=== PATIENT | male | born 1930 | race Caucasian/White ===

== ENCOUNTER 2018-10-29 12:27 | Observation (INO) ==
[2018-10-29] MEDS ORDERED: TYLENOL PO ONE (13:00)
[2018-10-29] MEDS ORDERED: MARCAINE 0.25% INJ ONE (13:03)
--- NOTE | 2018-10-29 13:09 | PROVIDER DOCUMENTATION ---
HPI-General Adult - General Chief Complaint: Fall Stated Complaint: FALL/RT HAND/RT KNEE PAIN Time Seen by Provider: 10/29/18 12:34 Source: patient Allergies/Adverse Reactions: Patient Allergies Allergy/AdvReac Type Severity Reaction Status Date / Time Penicillins Allergy ANAPHYLAXIS Verified 10/29/18 14:10 Home Medications: Home Medication List Medication Instructions Recorded Confirmed Last Taken Type Carvedilol 25 mg PO DAILY 05/23/12 04/13/15 04/13/15 06:00 History Digoxin 125 mcg PO DAILY 05/23/12 04/13/15 04/13/15 06:00 History Furosemide 40 mg PO DAILY 05/23/12 04/13/15 04/13/15 06:00 History Metformin [Glucophage] 500 mg PO DAILY 05/23/12 04/13/15 04/13/15 06:00 History - History of Present Illness -Gen Adult Nature of Presenting Problems: Patient is an 88 yowm who presents following a fall. Fall occurred at 1000 this morning. States, "I've been having dizzy spells and I'm not supposed to be standing up too fast, and I stood up out of my chair on the porch and I turned and went down." Reports striking the right side of his head on concrete. No LOC. No vomiting since fall. Denies headache. Also c/o right knee pain and sustained laceration to right 5th finger. Denies any other pain/injuries. He is in no distress and non-toxic in appearance. Able to partially bear weight on affected knee. States he has seen a neurologist and an ENT outpatient due to dizziness, states, "I haven't heard anything back about the tests they did." Review of Systems - Adult - REVIEW OF SYSTEMS - ADULT Constitutional: reports: no symptoms reported Eyes: reports: no symptoms reported Ears, Nose, Mouth & Throat: reports: no symptoms reported Cardiovascular: denies: chest pain, edema, orthopnea, palpitations, PND, syncope Respiratory: reports: no symptoms reported. denies: shortness of breath, wheezing Gastrointestinal: reports: no symptoms reported Genitourinary: reports: no symptoms reported Musculoskeletal: reports: see HPI, other (right knee pain/fall). denies: back pain, muscle weakness, neck pain Integumentary: reports: see HPI, other (laceration) Neurological: reports: see HPI, dizziness/vertigo, loss of balance, other (head injury). denies: headache/migraines, numbness, paresthesia, seizure, slurred speech, syncope, tremors Psychiatric: reports: no symptoms reported Endocrine: reports: no symptoms reported Hematologic/Lymphatic: reports: no symptoms reported Allergic/Immunologic: reports: no symptoms reported All Other Systems: Reviewed and Negative Past History - Adult - PAST MEDICAL HISTORY-ADULT Review of Records: reports: Old Records Reviewed, Nursing Assessment Review, Medications Reviewed, Social history reviewed & non-contributory. Major Childhood Illnesses: reports: denies history Cardiovascular: reports: HTN, hyperlipidemia Respiratory: reports: COPD Gastrointestinal: reports: denies history Obstetrical/Gynecological: reports: denies history Genitourinary: reports: denies history Musculoskeletal: reports: denies history Neurological: reports: denies history Endocrine/Immune: reports: Diabetes Other Conditions: reports: MRSA - PRIOR SURGERIES/PROCEDURES Surgical/Procedure History: reports: other (aortic valve replacement) - IMMUNIZATION STATUS Childhood Immunizations: See Nurse Assessment Flu Vaccine: See Nurse Assessment - FAMILY HISTORY Family History: reviewed, not pertinent - SOCIAL HISTORY Smoking: quit greater than 1 year Physical Exam-General - PHYSICAL EXAM-ADULT Initial Vital Signs Reviewed: Yes - CONSTITUTIONAL General Appearance: alert, no apparent distress. negative: lethargic, slow to respond - EYES Eyes: PERRL/EOMI, pink conjunctivae - HEAD, EARS, NOSE, MOUTH & THROAT HENMT: normocephalic/atraumatic, moist mucous membranes, TMs normal - NECK Neck: non-tender, full range of motion, supple, normal inspection. negative: C- spine tenderness, trachial deviation, tender lateral, tender midline - RESPIRATORY Respiratory: chest non-tender, lungs clear, normal breath sounds, no pleuratic chest pain, no respiratory distress, no accessory muscle use, other (No rib tenderness or ecchymoses noted to torso.). negative: respiratory distress, retractions, splinting - CARDIOVASCULAR Cardiovascular: normal peripheral pulses, regular rate, rhythm, no edema, no gallop, no JVD, no murmur - GASTROINTESTINAL (ABDOMEN) Abdominal Exam: normal bowel sounds, non tender, soft, no organomegaly, no pulsatile mass. negative: distended, guarding, rigid, rebound, tenderness, hernia, mass - MUSCULOSKELETAL Back Exam: normal inspection, no vertebral tenderness Extremity: normal range of motion, no calf tenderness, normal capillary refill, pelvis stable, tenderness (Right anterior knee, mild echhymoses also noted, ROM limited due to pain.). negative: deformity, erythema, pulse deficit, pedal edema, slow capillary refill Peripheral Pulses: dorsalis-pedis (R): 2+, dorsalis-pedis (L): 2+ - SKIN Integumentary: normal color, warm/dry, laceration(s) (3 cm laceration noted to palmar side of right 5th finger, tendon visible, no tendon rupture or injury apparent. Pt able to flex and extend affected finger. Radial pulse 3+, cap refill < 3 seconds.). negative: cyanosis, diaphoresis, jaundice, mottled, pallor - NEUROLOGIC Neurologic: grossly normal, no motor/sensory deficits - PSYCHIATRIC Psych/Mental Status: normal mood/affect, normal thought content, normal thought process, oriented x 3 Progress - PLAN OF CARE/RESULTS Progress/Plan/Lab Results: Vital Signs - 8 hr 10/29/18 12:29 Temperature 98.1 F Pulse Rate 60 Respiratory Rate 17 Blood Pressure 178/64 O2 Sat by Pulse Oximetry 96 Orders Category Date Time Status Cardiac Monitoring DIRECTED Care 10/29/18 13:00 Active ED: Orthostatic Vital Signs (E DIRECTED Care 10/29/18 13:00 Active Nursing- Obtain EKG ONCE Care 10/29/18 13:00 Active Saline Loc NOW Care 10/29/18 13:02 Active Suture Tray Set-Up DIRECTED Care 10/29/18 13:[address] HEAD/C-SPINE W/O CONTRAST [CT] Stat Exams 10/29/18 13:00 Ordered HAND COMPLETE RIGHT [RAD] Stat Exams 10/29/18 13:00 Ordered KNEE 3 VIEWS RIGHT [RAD] Stat Exams 10/29/18 13:00 Ordered CBC WITH DIFF [HEME] Stat Lab 10/29/18 12:59 Ordered COMPREHENSIVE METABOLIC PANEL [CHEM] Stat Lab 10/29/18 12:59 Uncollected PROTIME WITH INR [COAG] Stat Lab 10/29/18 13:02 Ordered PTT [COAG] Stat Lab 10/29/18 13:02 Ordered TROPONIN T Stat Lab 10/29/18 12:59 Ordered UA NIMS W/REFLEX CULT [URINALYSIS] Stat Lab 10/29/18 13:00 Uncollected Acetaminophen [Tylenol] Med 10/29/18 13:00 Discontinued 650 mg PO NOW ONE Bupivacaine 0.25% [Marcaine 0.25%] Med 10/29/18 13:03 Discontinued 10 ml INJ NOW ONE EKG [EKG] Stat Ther 10/29/18 13:00 Ordered 1605- Spoke with [facility] [employer] Summer regarding admission, [employer] states she will review chart prior to making decision to admit since pt is being worked up by his pcp outpatient for dizziness. 1611- Verified with pt that pcn reaction was not anaphylaxis. Pt states, "I don't really remember what happened but I know my throat didn't close up and my tongue didn't swell." Also denies hx of breathing difficulty with pcn. He is in agreement with admission plan. Result Diagrams: 10/29/18 14:30 10/29/18 14:30 - EKG 1 Time of EKG reading by physician:: 13:53 EKG Read and Signed by:: Balwinder Kelley EKG Interpretation (*Must complete 3 of following elements*): Abnormal Rate: 60 Rhythm: NSR with ST&T wave abnormality QRS: normal ST Wave: normal - CONSULTS/PCP/HOSPITALIST Notification #1 *Consult/PCP/Hospitalist*: Summer, [facility] [employer] Time Discussed: 16:55 Reason/Comments: admission- UTI, dizziness Consult Disposition: Admit ([employer] states Dr. Johnson accepted admission and has seen pt.) Procedures - LACERATION/WOUND REPAIR/FB Right Finger Wound Location: Other: right 5th finger, palmar side Wound Length: 3 cm Wound's Depth, Shape: linear Wound Explored/Foreign Body: clean Irrigated with Saline?: Yes Prepped with: Hibiclens (and saline), Sterile Drapes Applied Anesthetic: 0.5%, Bupivicaine/Marcaine Volume of Anesthetic (ml's): 6 Wound Debrided: extensive (irrigated with 100 ml saline/hibiclens mixture and washed/cleansed extensively) Wound Repaired with: Sutures Suture Size/Type: 4.0, Non-Absorbable, Nylon Number of Sutures: 6 Layer Closure?: No Splint Applied?: Yes Sling Applied?: No Post Procedure Neurovascular Exam: Intact Departure - Departure Date of Disposition Decision: 10/29/18 Time of Disposition Decision: 16:55 DIAGNOSIS: Dizziness, Laceration UTI (urinary tract infection) Qualifiers: Urinary tract infection type: site unspecified Hematuria presence: without hematuria Qualified Code(s): N39.0 - Urinary tract infection, site not specified Fall Qualifiers: Encounter type: initial encounter Qualified Code(s): W19.XXXA - Unspecified fall, initial encounter Head injury Qualifiers: Encounter type: initial encounter Qualified Code(s): S09.90XA - Unspecified injury of head, initial encounter Disposition: ADMITTED INPATIENT 09 Certified Medical Emergency: Emergent Condition: Stable - Critical Care Note This patient required my direct & personal management of CC.: No Attestation - Physician/ KOTA Attestation Patient care was provided by Advanced Practice Provider:: Yes Advanced Practice Provider:: Jacky Canela Advanced Practice Provider documentation review:: The Mid-level provider documentation, treatment plan and medical decision making was reviewed by the physician who agrees with all treatment and medical decision making by the MLP. The physician spent face to face time with patient:: No Advanced Practice Provider documentation review:: Supervising physician onsite and consulted in the evaluation and care of this patient. The physician did not have a face to face encounter with the patient.
--- NOTE | 2018-10-29 13:32 | Diag Imaging Result Doc PS360 ---
EXAM: CT HEAD/C-SPINE W/O CONTRAST INDICATION: fall, head injury TECHNIQUE: This exam was performed using automated exposure control, adjustment of mA or kV according to patient size, and/or use of iterative reconstruction technique. COMPARISON: CT head dated 10/14/[address] head and C-spine dated 04/02/2015 FINDINGS: Head: There is somewhat asymmetric brain atrophy that has exhibited long-term stability. There is suggestion of mild microangiopathy that is stable. There is no definite acute infarct given the limited sensitivity of CT versus MRI. There is a small calcified extra-axial lesion anteriorly on the left adjacent to the falx that is stable and may represent a small calcified meningioma. There is no discrete intracranial mass, mass effect, or intracranial hemorrhage, otherwise. The surrounding soft tissues are essentially unremarkable. The calvaria is intact. C-spine: There is multilevel facet arthropathy and degenerative disc disease that is essentially stable as compared to the previous study. This is most pronounced at C5-6 where there is more loss of disc space height. Otherwise, there is no discrete fracture, subluxation, or intrinsic osseous lesion. The surrounding soft tissues are essentially unremarkable. IMPRESSION: 1.Stable chronic changes but no evidence of acute intracranial pathology. 2.Stable multilevel degenerative arthropathy but no evidence of fracture or other definite acute C-spine injury. Electronically signed by Mario Bro 10/29/2018 1:29 PM
--- NOTE | 2018-10-29 13:35 | Diag Imaging Result Doc PS360 ---
EXAM: KNEE 3 VIEWS RIGHT INDICATION: fall, right knee pain TECHNIQUE: 3 views COMPARISON: None. FINDINGS: There is tricompartmental degenerative arthropathy with marginal osteophyte formation at all three compartments. There is significant degenerative joint space height loss at the medial compartment. There is no discrete fracture, dislocation, or significant intrinsic osseous lesion, otherwise. The surrounding soft tissues are essentially unremarkable. IMPRESSION: Tricompartmental degenerative arthropathy but no evidence of acute osseous abnormality. Electronically signed by Mario Bro 10/29/2018 1:32 PM
--- NOTE | 2018-10-29 13:37 | Diag Imaging Result Doc PS360 ---
EXAM: HAND COMPLETE RIGHT INDICATION: fall, right hand pain TECHNIQUE: 3 views COMPARISON: None. FINDINGS: There is severe radiocarpal joint degenerative arthropathy as well as significant intercarpal degenerative arthropathy. 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 There are milder IP joint degenerative changes. There is no discrete fracture, dislocation, or significant intrinsic osseous lesion, otherwise. The surrounding soft tissues are essentially unremarkable. IMPRESSION: Degenerative changes at the wrist as described but no definite acute osseous abnormality. Electronically signed by Mario Bro 10/29/2018 1:35 PM
[2018-10-29] MEDS ORDERED: MARCAINE 0.5% PF ONE (13:39)
[2018-10-29 14:43] LABS: URINE SOURCE CLEAN CATCH
[2018-10-29 14:44] LABS: BASO# 0.04 X1000 (0.0-0.2); BASO% 0.4 % (0.0-0.8); EOS# 0.29 X1000 (0.0-0.7); EOS% 2.7 % (0.0-10.0); HEMOGLOBIN 13.4 g/dL (14.0-18.0); IMM GRAN# 0.02 X1000 (0.0-0.04); IMM GRAN% 0.2 % (0.0-0.5); LYMPH# 1.65 X1000 (1.2-3.4); LYMPH% 15.2 % (20.5-51.1); MCH 31.8 PG (27-31); MCHC 34.4 g/dL (33-37); MCV 92.6 FL (81-99); MONO# 1.03 X1000 (0.11-0.59); MONO% 9.5 % (1.7-9.3); MPV 9.8 FL (7.4-10.4); NEUT# 7.81 X1000 (1.4-6.5); PLT 164 X1000 (130-400); RBC 4.21 XMIL (4.7-6.1); RDW 12.4 % (11.5-14.5); WBC 10.84 X1000 (4.8-10.8)
[2018-10-29 14:49] LABS: BILIRUBIN URINE NEGATIVE (NEGATIVE); BLOOD URINE TRACE (NEGATIVE); COLOR YELLOW; GLUCOSE URINE NEGATIVE (NEGATIVE); KETONE URINE NEGATIVE (NEGATIVE); LEUKOCYTES URINE LARGE (NEGATIVE); NITRITE URINE POSITIVE (NEGATIVE); PROTEIN URINE NEGATIVE (NEGATIVE); SP GRAVITY URINE 1.008; TURBIDITY URINE HAZY (CLEAR); UROBILINOGEN URINE NORMAL (NORMAL)
[2018-10-29 14:51] LABS: UR EPITHELIAL CELLS <10 /HPF (<10); URINE BACTERIA 3+ /HPF; URINE RBC <10 /HPF (<10); URINE WBC TNTC /HPF (<10)
[2018-10-29 14:52] LABS: INR 0.89; PROTIME 12.8 Seconds (11.0-16.0)
[2018-10-29 15:12] LABS: ALB/GLOB RATIO 1.5; ALBUMIN 4.3 g/dL (3.5-5.0); CALCIUM 9.3 mg/dL (8.8-10.2); CREATININE 1.6 mg/dL (0.7-1.2); POTASSIUM 5.5 mmol/L (3.5-5.1); TOTAL BILIRUBIN 0.45 mg/dL (0.20-1.00); TOTAL PROTEIN 7.2 g/dL (6.3-8.3)
[2018-10-29] MEDS ORDERED: NS 500 ML IV ONE (15:52)
[2018-10-29] MEDS ORDERED: ROCEPHIN 1 GM in NS 50 ML IV ONE ×2 (16:11→16:15)
[2018-10-29] MEDS ORDERED: LEVAQUIN 750 MG/D5W 750 MG/150 ML IVPB IV ONE (17:40)
[2018-10-29] MEDS ORDERED: KAYEXALATE PO ONE (18:38)
--- NOTE | 2018-10-29 19:24 | HISTORY AND PHYSICAL ---
CHIEF COMPLAINT: Fall; finger laceration. HISTORY OF PRESENT ILLNESS: The patient is a 88-year-old male with a history of frequent falls, pulmonary hypertension, CKD 3, hypertension, COPD. He presents after rising too quickly from a seated position, becoming briefly dizzy and falling, cutting open his right index finger. States that he has had frequent issues with orthostasis for quite some time. Has had extensive workup by Cardiology, Neurology, ENT. States that he is usually more careful but getting up, but on this occasion, lucia too quickly. Denies andre syncope. Does endorse some dysuria and urinary hesitancy over the last few days, but no fevers, chills, dyspnea, increased cough, chest pain. On evaluation in the ED, he was found to have a shallow laceration of the right index finger, mild acute kidney injury, and likely UTI. He is admitted for further evaluation and treatment. REVIEW OF SYSTEMS: Twelve-point review of systems negative except as per HPI. PAST MEDICAL HISTORY: Hypertension, diet-controlled diabetes, CKD 3, pulmonary hypertension, COPD. PAST SURGICAL HISTORY: Bovine aortic valve, cholecystectomy, pacemaker placement, chest debridement and skin graft after infection. SOCIAL HISTORY: Former smoker, quit approximately 35 years ago. Denies recent alcohol or illicit drug use. FAMILY HISTORY: Father ; he drowned. Mother with heart failure-related complications. LABORATORIES: WBC 10.8, hemoglobin 13.4, hematocrit 39.0, platelets 164,000. Sodium 130, potassium 5.5, BUN 37, creatinine 1.6, glucose 98. LFTs within normal limits. Albumin within normal limits. Urinalysis: Positive for nitrites, leukocyte large, too numerous to count white cells, no red blood cells, no epithelial cells, 3+ bacteria. IMAGING: Knee x-ray: Arthritis but no acute abnormality. Head and C-spine x-ray: Chronic changes and degenerative arthropathy, but no fracture or acute injury. Right hand x-ray: No acute abnormality or osteoarthritis. VITAL SIGNS: Temperature 98.1 degrees, pulse 60, respirations 17, blood pressure 178/64 O2 saturation 96% on room air. PHYSICAL EXAMINATION: GENERAL: No acute distress. VITAL SIGNS: As above. HEENT: Normocephalic, atraumatic. Dry mucous membranes. NECK: No cervical adenopathy. CARDIOVASCULAR: Regular rate and rhythm currently. Right upper sternal border murmur noted. Pacemaker noted in left upper chest. Extensive well-healed surgical scars on chest in midline. PULMONARY: Clear to auscultation bilaterally. ABDOMEN: Soft, nontender, nondistended. Bowel sounds positive. EXTREMITIES: Peripheral pulses intact. Trace lower extremity edema bilaterally. Right index finger laceration. NEUROLOGIC: Cranial nerves grossly intact. No focal deficits identified. PSYCHIATRIC: Normal mood and affect. Awake, alert, oriented x3 currently. SKIN: Laceration as above. Otherwise no new lesions or rashes noted. ASSESSMENT AND PLAN: 1. Acute kidney injury on chronic kidney disease 3, dehydration. The patient is on heavy diuretics at home, Lasix 80 three times a week and spironolactone 25 three times a week. Denies decreased p.o. intake, nausea, vomiting, or diarrhea, so likely diuretic related. Will hold diuretics, hydrate gently, and monitor. 2. Hyperkalemia, likely related to acute kidney injury. Will give a dose of Kayexalate, fluids as above, and monitor. 3. Urinary tract infection. The patient complains of dysuria and has had minimal leukocytosis but no fever, chills, tachycardia, or other systemic symptoms. Does not meet sepsis criteria. Will treat. Will place on Levaquin, check urine culture, and monitor. 4. Pulmonary hypertension, possible chronic diastolic congestive heart failure. The patient's family state that they believe he has a history of heart failure. On review of the medical record, all available echocardiograms show normal EF with moderate pulmonary hypertension and possible diastolic failure with impaired left ventricular relaxation. Gentle fluids as above, and monitor for signs of volume overload. 5. Hypertension. We will continue home Coreg and ARB once home medications are placed in the computer. Holding diuretics for now. Blood pressure is still somewhat elevated. Reluctant to start Norvasc because the patient has complained of intermittent leg swelling as a major issue. If blood pressure remains significantly elevated, may consider hydralazine or clonidine patch although these may have their own issues. 6. Hyperlipidemia. Continue home statin once medications are in the computer. 7. Diet-controlled diabetes. Last couple of A1c's have been fine off medication. Do not anticipate any insulin or glucose checks on this hospitalization. 8. Disposition: Will hydrate overnight and treat UTI. If the patient's kidney function improves and there are no signs of worsening infection, he may be able to be discharged tomorrow. If kidneys are slow to improve or other signs of infection develop, he may require longer hospitalization.
[2018-10-29] MEDS: LIPITOR PO SCH (22:17)
[2018-10-29] MEDS: NS 1,000 ML IV SCH (22:17)
[2018-10-29] MEDS: MELATONIN PO SCH (22:17)
[2018-10-30] MEDS: ROCEPHIN 1 GM in NS 50 ML IV SCH ×2 (00:42→23:04)
[2018-10-30] MEDS: TYLENOL PO PRN ×2 (00:43→17:57)
[2018-10-30 06:42] LABS: BASO# 0.01 X1000 (0.0-0.2); BASO% 0.1 % (0.0-0.8); EOS# 0.17 X1000 (0.0-0.7); EOS% 1.7 % (0.0-10.0); HEMATOCRIT 37.5 % (42.0-52.0); HEMOGLOBIN 12.7 g/dL (14.0-18.0); IMM GRAN# 0.02 X1000 (0.0-0.04); IMM GRAN% 0.2 % (0.0-0.5); LYMPH# 1.25 X1000 (1.2-3.4); LYMPH% 12.8 % (20.5-51.1); MCH 31.5 PG (27-31); MCHC 33.9 g/dL (33-37); MCV 93.1 FL (81-99); MONO# 0.95 X1000 (0.11-0.59); MONO% 9.7 % (1.7-9.3); MPV 10.6 FL (7.4-10.4); NEUT% 75.5 % (42.2-75.2); PLT 139 X1000 (130-400); RBC 4.03 XMIL (4.7-6.1); RDW 12.3 % (11.5-14.5)
[2018-10-30 07:08] LABS: CALCIUM 8.4 mg/dL (8.8-10.2); CREATININE 1.3 mg/dL (0.7-1.2); POTASSIUM 4.8 mmol/L (3.5-5.1)
[2018-10-30] MEDS ORDERED: COREG PO SCH (09:00)
[2018-10-30] MEDS: NS 1,000 ML IV SCH ×2 (10:02→15:29)
--- NOTE | 2018-10-30 11:02 | PROGRESS NOTE ---
DATE: 10/30/2018 SUBJECTIVE: Patient has had problems with ataxia and frequent falls recently. He had a fall yesterday and suffered a laceration to his right 5th digit and required 6 stitches in the ER for that. He also banged his right knee and jerked his neck. X-rays on his knee and wrist and neck and head were all negative. The latter actually was a CT scan of the head and neck, did show prominent arthritic changes in all these areas, but no acute fractures or bleeds. The patient is doing okay. He has had these dizzy spells and has been evaluated by Cardiology, Neurology and ENT. He has required longstanding high dose diuretics due to diastolic congestive heart failure and he is off the diuretics currently. Did receive 1 dose of Kayexalate due to some hyperkalemia. Notably, he was on Aldactone and telmisartan, those are being held. OBJECTIVE: Vital Signs: Afebrile, pulse 64, respirations 18, blood pressure 188/68, O2 saturation on room air 98%. Cardiovascular: Regular rate and rhythm with rare ectopy. Lungs: Clear. Abdomen: Protuberant, soft, nontender. Extremities: Right wrist with arthritic change but no acute tenderness, FROM at the neck. Right knee has abrasion right inferior patellar area, some arthritic change, but no major abnormality or effusion on testing except for arthritic change consistent with his x-rays. Neurologic: Cranial nerves 2-12 are intact. He is alert and oriented x3. Moves all extremities well. LABORATORY DATA: Sodium 131, potassium 4.8, down from 5.5 yesterday before the Kayexalate, chloride 97, BUN 30, creatinine 1.3, down from 1.6 yesterday with hydration. Calcium 8.4. White count 9.8, hemoglobin 12.7, platelets 139,000. Urine culture is in progress. Pyuria noted on UA. ASSESSMENT: 1. Prerenal azotemia on top of chronic kidney disease, stage 3. 2. Hyperkalemia resolved with Kayexalate and holding of his Aldactone and telmisartan. 3. Urinary tract infection. 4. Pulmonary hypertension with chronic diastolic congestive heart failure compensated. 5. Hypertension. 6. Hyperlipidemia. 7. Diet-controlled type 2 diabetes mellitus. 8. Osteoarthritis. 9. Ataxia. PLAN: We will continue the IV fluids at low-dose. Hold his diuretics of Lasix and Aldactone. Hold the telmisartan due to the hyperkalemia risk and we will start hydralazine at low dose. Continue Coreg and will adjust the dose on that during the hospitalization. His ataxia is medication related. We are going to take this opportunity to adjust vigorously on his medications to see if we can improve that situation and his history of falls. Will follow the electrolytes and urine culture closely. Possible discharge tomorrow if he does well. cc: Chema Sidhu MD
[2018-10-30] MEDS: APRESOLINE PO SCH ×2 (13:48→20:42)
[2018-10-30] MEDS: ASPIRIN PO SCH (13:48)
[2018-10-30] MEDS: LIPITOR PO SCH (20:42)
[2018-10-30] MEDS: MELATONIN PO SCH (20:42)
[2018-10-31] MEDS: APRESOLINE PO SCH (05:08)
[2018-10-31] MEDS: NS 1,000 ML IV SCH ×2 (05:08→06:29)
[2018-10-31 06:32] LABS: BASO# 0.02 X1000 (0.0-0.2); BASO% 0.2 % (0.0-0.8); EOS# 0.22 X1000 (0.0-0.7); EOS% 2.1 % (0.0-10.0); HEMATOCRIT 40.6 % (42.0-52.0); HEMOGLOBIN 13.9 g/dL (14.0-18.0); IMM GRAN# 0.02 X1000 (0.0-0.04); IMM GRAN% 0.2 % (0.0-0.5); LYMPH# 1.51 X1000 (1.2-3.4); LYMPH% 14.4 % (20.5-51.1); MCH 31.2 PG (27-31); MCHC 34.2 g/dL (33-37); MCV 91.2 FL (81-99); MONO# 0.98 X1000 (0.11-0.59); MONO% 9.4 % (1.7-9.3); NEUT# 7.71 X1000 (1.4-6.5); NEUT% 73.7 % (42.2-75.2); PLT 164 X1000 (130-400); RBC 4.45 XMIL (4.7-6.1); RDW 12.6 % (11.5-14.5); WBC 10.46 X1000 (4.8-10.8)
[2018-10-31 07:34] LABS: AGAP 10; BUN 20 mg/dL (8-22); CALCIUM 8.8 mg/dL (8.8-10.2); CHLORIDE 101 mmol/L (98-107); COSMO 271; CREATININE 1.1 mg/dL (0.7-1.2); ESTIMATED GFR > 60; GLUCOSE 94 mg/dL (70-104); POTASSIUM 4.3 mmol/L (3.5-5.1); SODIUM 134 mmol/L (136-145); TCO2 23 mmol/L (25-35)
[2018-10-31] MEDS: ASPIRIN PO SCH (08:33)
--- NOTE | 2018-10-31 08:34 | EKG Report ---
Test Performed on : 10/29/2018 1:38:46 PM Test Reason : dizziness Blood Pressure : / mmHG Vent. Rate : 060 BPM Atrial Rate : 060 BPM P-R Int : 200 ms QRS Dur : 094 ms QT Int : 388 ms P-R-T Axes : 000 -62 104 degrees QTc Int : 388 ms Normal sinus rhythm. Left axis deviation ST & T wave abnormality, consider lateral ischemia Abnormal ECG When compared with ECG of 24-MAR-2017 16:51, Sinus rhythm. has replaced Atrial fibrillation. T wave inversion more evident in Lateral leads Unconfirmed Result
[2018-10-31] MEDS ORDERED: COREG PO SCH (09:00)
[2018-10-31] MEDS ORDERED: NON-FORMULARY MED (Fluticasone/Umeclidin/Vilanter [Trelegy Ellipta 100-62.5-25] 1 PUFF) INH SCH (09:00)
[2018-10-31] MEDS ORDERED: CALTRATE 600 + D PO SCH (09:00)
[2018-10-31] MEDS ORDERED: PATIENT'S OWN MED PO SCH (09:00)
[2018-10-31] MEDS ORDERED: FISH OIL CONCENTRATE PO SCH (09:00)
[2018-10-31 12:49] VITALS: BP 161/67
--- NOTE | 2018-10-31 18:11 | PROGRESS NOTE ---
DATE: 10/31/2018 SUBJECTIVE: The patient overall doing better. Complained of some knee pain on the right where he had banged it with his recent fall, but overall doing fairly well. OBJECTIVE: Afebrile, pulse 85, respirations 20, blood pressure 161/67, O2 saturation 98% on room air.Cardiovascular: RRR. Lungs: Clear. Abdomen: Protuberant, nontender. Extremities: No calf tenderness, cords, or edema. Right knee chronic arthritic changes. Two abrasions to the right knee that are healing. No popliteal swelling or particular tenderness. Pronounced arthritic change with some difficulty with flexion/extension at the right knee. Laceration, right 5th digit, palmar aspect, is healing well without signs of infection. Six sut[address] DIAGNOSTIC STUDIES: White count 10.4, hemoglobin 13.9, platelets 164,000. Sodium 134, potassium 4.3, chloride 101, CO2 of 23, BUN 20, creatinine 1.1, calcium 8.8. Urine cultures growing out E coli sensitive to Levaquin and to all antibiotics except sulfa. The patient has been on ceftriaxone. ASSESSMENT: 1. Prerenal azotemia, resolved with hydration. 2. Chronic kidney disease, mild. Back to baseline. 3. Hyperkalemia, resolved with patient being off Aldactone and telmisartan and having 1 dose of Kayexalate. 4. Escherichia coli urinary tract infection, stable on antibiotics. 5. Pulmonary hypertension with chronic diastolic congestive heart failure, compensated. 6. Hypertension. 7. Hyperlipidemia. 8. Diet-controlled type 2 diabetes mellitus. 9. Osteoarthritis. 10. Ataxia. 11. Mechanical fall. 12. Laceration, right proximal 5th digit, palmar aspect, status post suture x6, simple interrupted. PLAN: We will plan on removal of these sutures in the office in about 11 to 12 days. We will discharge home on a lower dose of his antihypertensive medications as we are fearful that this may be causing him to drop his blood pressures, and we note today on one occasion he had a systolic down to 112 with the smaller amount of dosing he has been receiving even in the hospital. We will get him home on Coreg 12.5 mg b.i.d. and hydralazine 25 mg t.i.d. and off of the Lasix, Aldactone, potassium, and telmisartan. We will monitor his electrolytes and follow up in about 10 to 12 days in the office with repeat BMP at that time, and we will remove the sutures that day. Discharge him also on Levaquin 500 mg p.o. daily to complete 8 more days of treatment Notably, home health care has been arranged along with home physical therapy. He declines rehabilitation. cc: Chema Sidhu MD
== END 2018-10-31 14:58 | disposition home health service (06) ==
LOC: ED 12:27 → 4N 12:27 → SUATTDRO 17:27 → 4N 17:41
PROVIDERS: ADMIT Family Medicine; ATTEND Family Medicine
CPT/HCPCS: 70450; 72125; 73130; 73562; 80048; 80053; 81001; 84484; 85025; 85610; 85730; 87077; 87088; 87186; 93005; 96374; 99285; A9270; J0696; J1956; J7030; J7040; S0020

== ENCOUNTER 2019-04-10 15:46 | Inpatient (IN) ==
[2019-04-10 16:29] LABS: BASO# 0.06 X1000 (0.0-0.2); BASO% 0.5 % (0.0-0.8); EOS# 0.42 X1000 (0.0-0.7); EOS% 3.8 % (0.0-10.0); HEMATOCRIT 38.4 % (42.0-52.0); HEMOGLOBIN 12.4 g/dL (14.0-18.0); IMM GRAN# 0.02 X1000 (0.0-0.04); IMM GRAN% 0.2 % (0.0-0.5); LYMPH# 1.82 X1000 (1.2-3.4); LYMPH% 16.4 % (20.5-51.1); MCH 30.8 PG (27-31); MCHC 32.3 g/dL (33-37); MCV 95.3 FL (81-99); MONO# 1.04 X1000 (0.11-0.59); MONO% 9.4 % (1.7-9.3); MPV 10.1 FL (7.4-10.4); NEUT# 7.73 X1000 (1.4-6.5); NEUT% 69.7 % (42.2-75.2); PLT 221 X1000 (130-400); RBC 4.03 XMIL (4.7-6.1); RDW 12.6 % (11.5-14.5); WBC 11.09 X1000 (4.8-10.8)
--- NOTE | 2019-04-10 16:30 | Diag Imaging Result Doc PS360 ---
EXAM: CHEST-2 VIEWS INDICATION: sob TECHNIQUE: 2 views COMPARISON: 02/24/2019 FINDINGS: There is ill-defined airspace opacity at the left lung base that slightly obscures the left heart border suggesting likely developing pneumonia. The right lung appears clear. There is no discrete pleural fluid collection or pneumothorax. The pacemaker is in stable position. Cardiomediastinal silhouette and central vasculature are grossly unremarkable. IMPRESSION: Vague airspace consolidation at the left lung base likely representing developing pneumonia. Electronically signed by Mario Bro 04/10/2019 4:27 PM
[2019-04-10 16:32] LABS: INR 0.93; PROTIME 12.6 Seconds (11.0-16.0)
[2019-04-10 16:33] LABS: PTT 31.4 Seconds (22.3-41.8)
[2019-04-10 16:56] LABS: ALB/GLOB RATIO 1.4; ALBUMIN 4.2 g/dL (3.5-5.0); CALCIUM 9.8 mg/dL (8.8-10.2); CREATININE 1.2 mg/dL (0.7-1.2); POTASSIUM 4.4 mmol/L (3.5-5.1); TOTAL BILIRUBIN 0.33 mg/dL (0.20-1.00); TOTAL PROTEIN 7.1 g/dL (6.3-8.3)
[2019-04-10] MEDS ORDERED: DUONEB (A & A) INH ONE (17:00)
[2019-04-10] MEDS ORDERED: LASIX IV ONE (17:00)
--- NOTE | 2019-04-10 17:09 | PROVIDER DOCUMENTATION ---
HPI-General Adult - General Chief Complaint: Shortness of Breath Stated Complaint: SOB,CHF,EDEMA Time Seen by Provider: 04/10/19 16:33 Source: patient Allergies/Adverse Reactions: Patient Allergies Allergy/AdvReac Type Severity Reaction Status Date / Time Penicillins Allergy ANAPHYLAXIS Verified 04/10/19 18:30 Home Medications: Home Medication List Medication Instructions Recorded Confirmed Last Taken Type ATORVAstatin [Lipitor] 20 mg PO QHS 10/29/18 04/10/19 04/09/19 History Aspirin 81 mg PO DAILY 10/29/18 04/10/19 04/10/19 History Calcium Carbonate/Vit D3 [Caltrate 1 ea PO BID 10/29/18 04/10/19 04/10/19 History 600 + D] Fluticasone/Umeclidin/Vilanter 1 puff INH DAILY 10/29/18 04/10/19 04/10/19 History [Trelegy Ellipta 100-62.5-25] Garlic [Garlic Oil] 1 ea PO DAILY 10/29/18 04/10/19 04/10/19 History Melatonin/Pyridoxine [Melatonin 5 1 ea PO QHS 10/29/18 04/10/19 04/09/19 History mg Tablet] [place]-3 Fatty Acids/Fish Oil [Fish 1 cap PO DAILY 10/29/18 04/10/19 04/10/19 History Oil 1,000 mg Capsule] Carvedilol [Coreg] 12.5 mg PO BID #60 tab 10/31/18 04/10/19 04/10/19 Rx Hydralazine [Apresoline] 25 mg PO Q8H #90 tab 10/31/18 04/10/19 04/10/19 Rx Albuterol Sulfate [Proair Hfa] 1 puff INHALATION PRN PRN 02/24/19 04/10/19 02/23/19 History Torsemide [Demadex] 40 mg PO QAM 02/24/19 04/10/19 04/10/19 History - History of Present Illness -Gen Adult Nature of Presenting Problems: Patient with a h/o HTN, COPD, CHF, He has aortic valve replacement with bovine valve and is s/p pacemaker reports progressive b/l leg edema and sob x 1 week and daughter states that sob got worse today hence ED visit. No chest pain , N/V or calf pain. He reports compliance with his torsemide Location of Pain/Injury: reports: other (sob, edema) Pain Radiation: reports: no radiation Quality of Pain: reports: none Severity: reports: moderate Onset/Duration: reports: 1 week ago Timing: reports: still present Context/Activities at Onset: reports: moderate activity Modifying Factors: improves with: nothing Associated Symptoms: reports: denies symptoms Review of Systems - Adult - REVIEW OF SYSTEMS - ADULT ROS:: unobtainable per condition Constitutional: reports: no symptoms reported Eyes: reports: no symptoms reported Ears, Nose, Mouth & Throat: reports: no symptoms reported Cardiovascular: reports: see HPI Respiratory: reports: see HPI Gastrointestinal: reports: no symptoms reported Genitourinary: reports: no symptoms reported Musculoskeletal: reports: no symptoms reported Integumentary: reports: no symptoms reported Neurological: reports: no symptoms reported Psychiatric: reports: no symptoms reported Endocrine: reports: no symptoms reported Hematologic/Lymphatic: reports: no symptoms reported Allergic/Immunologic: reports: no symptoms reported Past History - Adult - PAST MEDICAL HISTORY-ADULT Review of Records: reports: Nursing Assessment Review, Medications Reviewed, Social history reviewed & non-contributory. Major Childhood Illnesses: reports: denies history Cardiovascular: reports: HTN, hyperlipidemia Respiratory: reports: COPD Gastrointestinal: reports: denies history Obstetrical/Gynecological: reports: denies history Genitourinary: reports: denies history Musculoskeletal: reports: denies history Neurological: reports: denies history Endocrine/Immune: reports: Diabetes Other Conditions: reports: MRSA - PRIOR SURGERIES/PROCEDURES Surgical/Procedure History: reports: other (aortic valve replacement) - IMMUNIZATION STATUS Childhood Immunizations: See Nurse Assessment Flu Vaccine: See Nurse Assessment - FAMILY HISTORY Family History: reviewed, not pertinent - SOCIAL HISTORY Smoking: other (former smoker) Substance Use: none/never Alcohol Use Frequency: never Living Situation: family Physical Exam-General - PHYSICAL EXAM-ADULT Initial Vital Signs Reviewed: Yes - CONSTITUTIONAL General Appearance: appears well, alert - EYES Eyes: PERRL/EOMI - HEAD, EARS, NOSE, MOUTH & THROAT HENMT: normocephalic/atraumatic, moist mucous membranes - NECK Neck: non-tender, full range of motion, supple - RESPIRATORY Respiratory: chest non-tender, lungs clear, wheezing (mild) - CARDIOVASCULAR Cardiovascular: regular rate, rhythm, no JVD - GASTROINTESTINAL (ABDOMEN) Abdominal Exam: non tender, soft, distended - MUSCULOSKELETAL Back Exam: normal inspection, no CVA tenderness Extremity: pedal edema (3+ b/l lower extremities) - SKIN Integumentary: normal color - NEUROLOGIC Neurologic: grossly normal - PSYCHIATRIC Psych/Mental Status: oriented x 3 Progress - PLAN OF CARE/RESULTS Progress/Plan/Lab Results: Vital Signs - 8 hr 04/10/19 15:55 Temperature 97.6 F Pulse Rate 68 Respiratory Rate 20 Blood Pressure 165/59 O2 Sat by Pulse Oximetry 94 L Laboratory Results - last 24 hr 04/10/19 04/10/19 04/10/19 16:04 16:04 16:04 WBC 11.09 H RBC 4.03 L Hgb 12.4 L Hct 38.4 L MCV 95.3 MCH 30.8 MCHC 32.3 L RDW Std Deviation 12.6 Plt Count 221 MPV 10.1 Immature Gran % (Auto) 0.2 Neut % (Auto) 69.7 Lymph % (Auto) 16.4 L [place] % (Auto) 9.4 H Eos % (Auto) 3.8 Baso % (Auto) 0.5 Immature Gran # (Auto) 0.02 Neut # (Auto) 7.73 H Lymph # (Auto) 1.82 [place] # (Auto) 1.04 H Eos # (Auto) 0.42 Baso # (Auto) 0.06 PT INR PTT (Actin FS) Sodium 136 Potassium 4.4 Chloride 90 L Carbon Dioxide 34 Anion Gap 12 BUN 27 H Creatinine 1.2 Estimated GFR/1.73 m2 57 BUN/Creatinine Ratio 23 Glucose 109 H Calculated Osmolality 278 Calcium 9.8 Total Bilirubin 0.33 AST 17 ALT 13 Alkaline Phosphatase 48 Creatine Kinase 68 Troponin T Xel-[id number]-Jdadmjssrbi Pept 982 H Total Protein 7.1 Albumin 4.2 Globulin 2.9 Albumin/Globulin Ratio 1.4 04/10/19 04/10/19 16:04 16:04 WBC RBC Hgb Hct MCV MCH MCHC RDW Std Deviation Plt Count MPV Immature Gran % (Auto) Neut % (Auto) Lymph % (Auto) [place] % (Auto) Eos % (Auto) Baso % (Auto) Immature Gran # (Auto) Neut # (Auto) Lymph # (Auto) [place] # (Auto) Eos # (Auto) Baso # (Auto) PT 12.6 INR 0.93 PTT (Actin FS) 31.4 Sodium Potassium Chloride Carbon Dioxide Anion Gap BUN Creatinine Estimated GFR/1.73 m2 BUN/Creatinine Ratio Glucose Calculated Osmolality Calcium Total Bilirubin AST ALT Alkaline Phosphatase Creatine Kinase Troponin T 0.011 Shx-F-Zohfiqzrfyd Pept Total Protein Albumin Globulin Albumin/Globulin Ratio Orders Category Date Time Status Cardiac Monitoring DIRECTED Care 04/10/19 16:00 Active Oxygen Therapy- ED Nursing DIRECTED Care 04/10/19 16:00 Active CHEST-2 VIEWS [RAD] Stat Exams 04/10/19 16:00 Completed CBC WITH ELECTRONIC DIFF [HEME] Stat Lab 04/10/19 16:04 Completed CK PROFILE [SP CHEM] Stat Lab 04/10/19 16:04 Completed COMPREHENSIVE METABOLIC PANEL [CHEM] Stat Lab 04/10/19 16:04 Completed PRO B-NATRIURETIC PEPTIDE Stat Lab 04/10/19 16:04 Completed PROTIME WITH INR [COAG] Stat Lab 04/10/19 16:04 Completed PTT [COAG] Stat Lab 04/10/19 16:04 Completed TROPONIN T Stat Lab 04/10/19 16:04 Completed CP/SOB/Palp >45 yrs of Age Stat Oth 04/10/19 15:59 Ordered EKG [EKG] Stat Ther 04/10/19 16:00 Ordered Result Diagrams: 04/10/19 16:04 04/10/19 16:04 - REASSESSMENT Reassessment #1 Time Reassessed: 07:00 Status: unchanged (still has sob and still mild wheezing b/l lungs on ascultation. Had been given lasix, yet to make urine. Will order albuterol and solumedrol. Xray revealed pneumonia, pt informed. Will do blood cx, sputum cx, lactate and start abx) - XRAY 2 XRAY Study: Chest ( EXAM: CHEST-2 VIEWS INDICATION: sob TECHNIQUE: 2 views COMPARISON: 02/24/2019 FINDINGS: There is ill-defined airspace opacity at the left lung base that slightly obscures the left heart border suggesting likely developing pneumonia. The right lung appears clear. There is no discrete pleural fluid collection or pneumothorax. The pacemaker is in stable position. Cardiome diastinal silhouette and central vasculature are grossly unremarkable. IMPRESSION: Vague airspace consolidation at the left lung base likely representing developing pneumonia. Electronically signed by Mario Bro 04/10/2019 4:27 PM) - CONSULTS/PCP/HOSPITALIST Notification #1 *Consult/PCP/Hospitalist*: Dr. Alva Time Discussed: 19:55 Consult Disposition: Admit (accepts admission) Departure - Departure Date of Disposition Decision: 04/10/19 Time of Disposition Decision: 17:55 DIAGNOSIS: Pneumonia Qualifiers: Pneumonia type: due to unspecified organism Laterality: left Lung location: lower lobe of lung Qualified Code(s): J18.1 - Lobar pneumonia, unspecified organism COPD (chronic obstructive pulmonary disease) Qualifiers: COPD type: COPD with acute exacerbation Qualified Code(s): J44.1 - Chronic obstructive pulmonary disease with (acute) exacerbation CHF exacerbation Qualifiers: Heart failure type: unspecified Qualified Code(s): I50.9 - Heart failure, unspecified Disposition: ADMITTED INPATIENT 09 Certified Medical Emergency: Emergent Condition: Fair Referrals and Follow-Ups: Chema Sidhu MD [Primary Care Provider] - - Critical Care Note This patient required my direct & personal management of CC.: Yes Attestation - Physician/ KOTA Attestation Patient care was provided by Advanced Practice Provider:: No The physician spent face to face time with patient:: Yes Advanced Practice Provider documentation review:: Supervising physician onsite and consulted in the evaluation and care of this patient. The physician did have a face to face encounter with the patient.
[2019-04-10] MEDS ORDERED: LEVAQUIN 750 MG/D5W 750 MG/150 ML IVPB IV ONE (19:04)
[2019-04-10] MEDS ORDERED: SOLU-MEDROL IV ONE (19:05)
[2019-04-10] MEDS ORDERED: ALBUTEROL NEB INH ONE (19:06)
[2019-04-10] MEDS ORDERED: ZOFRAN IV PRN (23:46)
[2019-04-10] MEDS ORDERED: TYLENOL PO PRN (23:46)
[2019-04-11] MEDS: COREG PO SCH ×3 (00:10→21:58)
[2019-04-11] MEDS: LIPITOR PO SCH ×2 (00:10→21:56)
[2019-04-11] MEDS: APRESOLINE PO SCH ×5 (00:11→22:55)
[2019-04-11] MEDS: MELATONIN PO SCH ×2 (00:11→21:57)
[2019-04-11] MEDS: DUONEB (A & A) INH SCH ×5 (00:42→19:07)
[2019-04-11 03:18] LABS: BASO# 0.01 X1000 (0.0-0.2); BASO% 0.1 % (0.0-0.8); HEMATOCRIT 36.8 % (42.0-52.0); IMM GRAN# 0.02 X1000 (0.0-0.04); IMM GRAN% 0.3 % (0.0-0.5); LYMPH# 0.59 X1000 (1.2-3.4); LYMPH% 7.6 % (20.5-51.1); MCH 30.8 PG (27-31); MCHC 32.6 g/dL (33-37); MCV 94.4 FL (81-99); MONO# 0.05 X1000 (0.11-0.59); MONO% 0.6 % (1.7-9.3); NEUT# 7.11 X1000 (1.4-6.5); NEUT% 91.4 % (42.2-75.2); PLT 199 X1000 (130-400); RDW 12.3 % (11.5-14.5); WBC 7.78 X1000 (4.8-10.8)
--- NOTE | 2019-04-11 03:52 | EKG Report ---
Test Performed on : 04/10/2019 4:03:41 PM Test Reason : sob Blood Pressure : / mmHG Vent. Rate : 068 BPM Atrial Rate : 068 BPM P-R Int : 176 ms QRS Dur : 098 ms QT Int : 398 ms P-R-T Axes : 073 -67 091 degrees QTc Int : 423 ms Normal sinus rhythm. Left anterior fascicular block T wave abnormality, consider lateral ischemia Abnormal ECG When compared with ECG of 24-FEB-2019 17:42, (Unconfirmed) No significant change was found Unconfirmed Result
[2019-04-11 04:36] LABS: CALCIUM 9.7 mg/dL (8.8-10.2); CREATININE 1.4 mg/dL (0.7-1.2); MAGNESIUM 1.8 mg/dL (1.5-2.7); POTASSIUM 4.1 mmol/L (3.5-5.1)
--- NOTE | 2019-04-11 08:18 | HISTORY AND PHYSICAL ---
PRIMARY CARE PROVIDER: Dr. Chema Sidhu. DATE AND TIME: 04/10/2019 at 2100. CHIEF COMPLAINT: Shortness of breath and bilateral lower extremity edema. HISTORY OF PRESENT ILLNESS: Mr. 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 The patient states that he has been short of breath for approximately 1 week. He also reports that he has had some bilateral lower extremity edema and some swelling in his abdomen since Wednesday, which was approximately 3 days ago. The patient states that his shortness of breath has just progressively gotten worse. He does wear oxygen at night at home, 3 L per nasal cannula. He denies having to use this any other time except for at night. He has reported increased use of his albuterol inhaler. He states he has not noticed any fever, body aches, or chills, though he has had some sinus congestion, a productive cough with green sputum. The patient denies any worsening orthopnea or paroxysmal nocturnal dyspnea. The patient states that he has been sleeping in a recliner for over a year now. He denies any headache, dizziness, or feeling lightheaded. He denies any chest pain. He denies any abdominal pain, nausea, vomiting, or diarrhea. He denies any bloody or black looking stools. He denied any dysuria. He also denies any pain, numbness, tingling, or swelling in the extremities. Upon evaluation in the ER, he was noted to have just mild leukocytosis with a white blood cell count of 11,090, though he did have a slightly elevated proBNP of 982. The patient does have crackles noted in bilateral bases. He is overall diminished. He does have expiratory wheezing noted in the upper lung jarrett, some slight expiratory wheezing noted in the upper lung jarrett. He does have, I would say, trace to 1+ pitting edema noted in bilateral lower extremities from the mid calf down. His abdomen does appear to be distended slightly. Cardiac enzymes were negative. EKG showed a normal sinus rhythm at a rate of 68 with a QTc of 423. Chest x-ray did show a vague airspace consolidation at the left lung base, likely representing developing pneumonia. REVIEW OF SYSTEMS: A 14 point review of systems was conducted with the patient. All were negative except for pertinent positives mentioned above in the HPI. PAST MEDICAL HISTORY: 1. History of a bovine aortic valve replacement. 2. 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 3. History of congestive heart failure. 4. Hypertension. 5. Hyperlipidemia. 6. Diabetes mellitus which he reports is borderline and is diet controlled at this time. 7. Chronic kidney disease. 8. History of a TIA, which he initially did have some residual left eye visual disturbances, though he states this is almost completely resolved now. 9. History of COPD, on home oxygen at night at 3 L per nasal cannula. 10. History of pulmonary hypertension. PAST SURGICAL HISTORY: 1. Bovine aortic valve replacement. 2. Cholecystectomy. 3. Pacemaker placement. 4. Chest debridement and skin graft after infection that he sustained from his aortic valve replacement. 5. Prostate surgery. SOCIAL HISTORY: The patient is a former smoker. He did smoke 1 pack per day for approximately 40 years, though quit smoking 35 to 40 years ago. He has no known alcohol or illicit drug use. He does live by himself, though his daughter does come by and check on him regularly. She was present at bedside during our examination. FAMILY HISTORY: Positive for his father passing away secondary to drowning. His mother secondary to heart failure related complications. ALLERGIES: Patient has allergies to penicillin. HOME MEDICATIONS: 1. ProAir HFA inhaler 1 puff inhaled p.r.n. as needed. 2. Aspirin 81 mg p.o. daily. 3. Atorvastatin 20 mg p.o. at bedtime. 4. Caltrate 600 plus vitamin D 1 tablet p.o. b.i.d. 5. Coreg 12.5 mg p.o. b.i.d. 6. Trelegy Ellipta 100/62.5/25 one puff inhaled daily. 7. Garlic oil 1 capsule p.o. daily. 8. Apresoline 25 mg p.o. q.8 hours. 9. Melatonin 5 mg tablet p.o. at bedtime. 10. Fish oil 1000 mg capsule 1 p.o. daily. 11. Torsemide 40 mg p.o. q.a.m. DIAGNOSTIC DATA: White blood cell count is 11,090, hemoglobin 12.4, hematocrit 38.4, platelet count is 221,000. PT 12.6, INR 0.93, PTT is 31.4. Sodium 136, potassium 4.4, chloride 90, serum bicarb 34, BUN 27, creatinine 1.2, with a GFR of 57, glucose 109, calcium 9.8, magnesium 1.9. Liver function tests within normal limits. CK 68, troponin is 0.011 with a repeat of less than 0.1. ProBNP is 92. EKG showed normal sinus rhythm at a rate of 68 with a QTc of 423. Chest x-ray showed vague airspace consolidation at the left lung base, likely representing a developing pneumonia. PHYSICAL EXAMINATION: VITAL SIGNS: Temperature 98.6 degrees, heart rate 73, respirations 20, blood pressure is 199/64, oxygen saturation is 97% on nasal cannula at 3 L. The patient did report that he had not taken his blood pressure medication today. We are going to order this for him to receive tonight before bed. GENERAL: Mr. Blevins is a pleasant, 89-year-old, male who is resting on the ER stretcher. He was in no acute distress. He was awake, alert, and able to answer questions appropriately. HEENT: Head is atraumatic, normocephalic. Pupils are equal, round, reactive to light, were 3 mm bilaterally and brisk. Oral mucosa was slightly dry. Oropharynx was clear. NECK: Supple. Trachea midline. CARDIOVASCULAR: Patient has S1-S2 present. No murmurs, gallops, or rubs appreciated, with a regular rate and rhythm. PULMONARY: The patient has symmetrical chest expansion bilaterally. Lung sounds overall throughout bilateral lung jarrett were slightly diminished. He did have some expiratory wheezing noted in bilateral upper lung jarrett and in bilateral lung bases, he did have fine crackles noted. ABDOMEN: Soft, nontender, though does appear to be slightly distended. The patient does have a protuberant abdomen noted as well. Bowel sounds were present in all 4 quadrants, were slightly hypoactive. EXTREMITIES: No cyanosis noted. The patient does have trace to 1+ pitting edema noted in bilateral lower extremities from mid calf down. Pulse, motor, and sensory are intact in all extremities. Radial and pedal pulses are 2+ bilaterally. INTEGUMENTARY: The patient's skin is pink, warm, and dry. NEUROLOGICAL: Patient is alert and oriented to person, place, time, and situation. There were no focal neurological deficits noted. ASSESSMENT AND PLAN: 1. Community-acquired left lower lobe pneumonia. For this, the patient has been placed on antibiotic of Levaquin. Blood cultures have been drawn. We have ordered a sputum culture as well. We will continue with incentive spirometry, frequent encouragement of turn, cough, and deep breathing, as well as DuoNeb treatments. We did also order a sputum culture as well. We will continue to follow. 2. Mild congestive heart failure exacerbation. The patient does have some worsening edema and swelling in his abdomen, as well as bilateral crackles. He may have had some slight jugular venous distention, though there was no hepatojugular reflex noted. He did have a slightly elevated proBNP as well at 92. He has a last known ejection fraction of 65% in July 2018. He did receive 40 mg of Lasix intravenously in the emergency room. I do feel like the patient would likely benefit from a few more doses of intravenous Lasix, though we will do 20 mg intravenously every 12 hours. We will do strict intake and output, and daily weights. We will continue his other regular cardiac medications. We will continue to monitor. 3. Hypertension. We will continue his regularly prescribed antihypertensive medications. 4. Hyperlipidemia. We will continue his atorvastatin. The patient has been placed on the medical floor with telemetry. He will have vital signs every 8 hours. He will be on a diabetic and heart healthy diet. We have placed a consult with Dr. Chema Sidhu, who is his primary care physician. He will be taking back over his care in the morning. We will repeat a CBC, BMP, and magnesium in the morning, as well as a series of cardiac enzymes. The patient is denying any chest pain. Further orders and recommendations pending hospital course, diagnostic studies, and physician evaluation. Dictated by ELLE Pimentel for Geremias Alva MD I have performed a face to face diagnostic evaluation. Labs/ Xray- reviewed, Exam- Chest- rhonchi, CV- regular. A/P- Pneumonia- Admit, check blood cultures, IV ABX. Dr. Artie Pagan#: [id number] cc: MD Chema Tony MD [facility]
[2019-04-11] MEDS: ASPIRIN PO SCH (09:52)
[2019-04-11] MEDS: CALTRATE 600 + D PO SCH ×2 (09:52→21:56)
[2019-04-11] MEDS: LASIX IV SCH ×2 (09:52→21:56)
[2019-04-11] MEDS: FISH OIL CONCENTRATE PO SCH (09:52)
[2019-04-11] MEDS: PATIENT'S OWN MED PO SCH (09:53)
[2019-04-11] MEDS ORDERED: LEVAQUIN 750 MG in NS 150 ML IV SCH (20:30)
--- NOTE | 2019-04-11 21:03 | PROGRESS NOTE ---
DATE: 04/11/2019 SUBJECTIVE: Patient feeling better overall. Leg swelling has improved. OBJECTIVE: Vital signs: Afebrile, pulse 73, respirations 20, blood pressure is elevated currently at 199/64, O2 saturation on 2 L 97%. CV: RRR. Lungs: Rare crackle on the right. Good air movement. Slight distant breath sounds. Abdomen: Protuberant, soft, nontender. Extremities: No major lower extremity edema. Neurologic: Cranial nerves 2 through 12 intact. No focal deficits. LABORATORY DATA: Sodium 137, potassium 4.1, chloride 93, CO2 30, BUN 30, creatinine 1.4, magnesium 1.8, total CKs 65 and 84 respectively. Troponin less than 0.01. White count 7.7, down from 11.09, hemoglobin 12, platelets 199,000. PT and PTT normal. Chest x-ray on admission revealed vague airspace consolidation in left lung base, possibly representing developing pneumonia. ASSESSMENT: 1. Left lower lobe pneumonia, community acquired. 2. Mild congestive heart failure exacerbation. 3. Hypertension. 4. Hyperlipidemia. 5. Coronary artery disease with history of previous coronary artery bypass grafting. 6. Hypercholesterolemia. 7. PPM. 8. History of transient ischemic attack. 9. Mild chronic kidney disease. 10. Pulmonary hypertension. 11. Chronic obstructive pulmonary disease. 12. Diet-controlled type 2 diabetes mellitus. PLAN: 1. We will continue 20 mg of intravenous Lasix every 12 hours. 2. Continue DuoNebs. 3. Continue intravenous antibiotics of Levaquin. 4. Blood cultures x2 are negative thus far. 5. Continue incentive spirometry every 1 hour while awake. 6. Continue his home medications. 7. Up to bathroom with assistance. 8. If he continues to do well, may be able to discharge him home tomorrow or the next day. 9. We will plan on repeat labs and chest x-ray in the morning. cc: Chema Sidhu MD
[2019-04-12] MEDS: DUONEB (A & A) INH SCH ×4 (03:25→15:31)
[2019-04-12] MEDS: APRESOLINE PO SCH ×2 (06:24→16:48)
[2019-04-12 06:55] LABS: BASO# 0.02 X1000 (0.0-0.2); BASO% 0.2 % (0.0-0.8); EOS% 0.8 % (0.0-10.0); HEMATOCRIT 38.4 % (42.0-52.0); HEMOGLOBIN 12.2 g/dL (14.0-18.0); IMM GRAN# 0.03 X1000 (0.0-0.04); IMM GRAN% 0.2 % (0.0-0.5); LYMPH# 1.59 X1000 (1.2-3.4); MCH 30.4 PG (27-31); MCHC 31.8 g/dL (33-37); MCV 95.8 FL (81-99); MONO# 1.12 X1000 (0.11-0.59); MONO% 8.4 % (1.7-9.3); MPV 10.3 FL (7.4-10.4); NEUT# 10.41 X1000 (1.4-6.5); NEUT% 78.4 % (42.2-75.2); PLT 227 X1000 (130-400); RBC 4.01 XMIL (4.7-6.1); RDW 12.7 % (11.5-14.5); WBC 13.27 X1000 (4.8-10.8)
[2019-04-12 07:19] LABS: CALCIUM 9.8 mg/dL (8.8-10.2); CREATININE 1.4 mg/dL (0.7-1.2); POTASSIUM 4.1 mmol/L (3.5-5.1)
--- NOTE | 2019-04-12 07:40 | Diag Imaging Result Doc PS360 ---
EXAM: CHEST-2 VIEWS HISTORY: f/u pna TECHNIQUE: Two views 04/10/2019 COMPARISON: None. FINDINGS: The lungs are well expanded. A heart valve has been replaced and there is a left-sided pacemaker. The heart is mildly prominent. No pulmonary edema. No pleural effusions. There are no infiltrates. Prominent atherosclerosis. IMPRESSION: No pneumonia. Electronically signed by Mauro Hinojosa 04/12/2019 7:38 AM
[2019-04-12] MEDS: CALTRATE 600 + D PO SCH (11:06)
[2019-04-12] MEDS: COREG PO SCH (11:06)
[2019-04-12] MEDS: LASIX IV SCH (11:06)
[2019-04-12] MEDS: FISH OIL CONCENTRATE PO SCH (11:06)
[2019-04-12] MEDS: ASPIRIN PO SCH (11:06)
[2019-04-12] MEDS: PATIENT'S OWN MED PO SCH (11:36)
[2019-04-12 15:43] VITALS: BP 143/58
[2019-04-12] MEDS ORDERED: LEVAQUIN 500 MG/D5W 500 MG/100 ML IVPB IV SCH (21:00)
--- NOTE | 2019-04-13 16:29 | DISCHARGE SUMMARY ---
ADMISSION DATE: 04/10/2019 DISCHARGE DATE: 04/12/2019 DIAGNOSES: 1. Mild acute systolic congestive heart failure exacerbation on top of chronic. 2. Possible mild left lower lobe pneumonia. 3. Hypertension. 4. Hyperlipidemia. 5. Coronary artery disease. 6. Chronic obstructive pulmonary disease. 7. Permanent pacemaker. 8. Diet-controlled type 2 diabetes mellitus. 9. Pulmonary hypertension. 10. History of bovine aortic valve replacement. PROCEDURES: 1. Chest x-ray on admission reveals vague airspace consolidation left lung base likely representing developing pneumonia. 2. Chest x-ray on discharge revealing no pneumonia. Left-sided permanent pacemaker. Heart size mildly prominent. No pulmonary edema. No pleural effusions. No infiltrates. Prominent atherosclerosis. REASON FOR ADMISSION AND HOSPITAL COURSE: The patient is an 89-year-old white male followed in my medical practice came in with cough and leg swelling. He is bad to sit with his legs down. He was found on chest x-ray to have a possible left lower lobe pneumonia, early versus CHF or combined issue with both. It was felt he had both, and he was treated with IV Levaquin and DuoNeb's. Blood cultures x2 were obtained and were negative. He was given doses of Lasix 20 mg IV q.12 hours. We left off his home dose of Demodex 40 mg daily. He was continued on his other home medications of Coreg, Lipitor, trilogy, and hydralazine. He was given nebulizer treatments with the DuoNeb's. Lungs cleared. His leg swelling resolved. His legs were elevated. He was ambulating without difficulty, and felt better. It was felt he could be discharged home by 04/12. The chest x-ray had cleared. He was given new prescription for home nebulizer with accessories, and he will use DuoNeb q.4 hours while awake. He will be on Levaquin 500 mg p.o. daily. He will continue Demodex 40 mg p.o. every morning, and we added Aldactone 25 mg p.o. every morning. Otherwise, he will resume his home medications of Caltrate plus D 1 p.o. b.i.d., garlic oil 1 p.o. daily, melatonin 5 mg p.o. q.8h at bedtime, fish oil 1000 mg p.o. daily, aspirin 81 mg p.o. daily, Lipitor 20 mg p.o. at bedtime, trilogy Ellipta 100 1 puff daily, Coreg 12.5 mg p.o. b.i.d., hydralazine 25 mg p.o. q.8 hours. He will follow up in my office in about 5 to 6 days or sooner if worsens. cc: Chema Sidhu MD
== END 2019-04-12 18:33 | disposition home or self-care (01) | DRG 291 ==
LOC: ED 15:46 → SUATTDRO 21:45 → 4N 21:45
PROVIDERS: ADMIT Family Medicine; ATTEND Family Medicine